=== PATIENT | male | born 1975 | race Caucasian/White ===

== ENCOUNTER 2024-04-13 10:03 | Emergency (ER) | payer SELFPAY ==
[2024-04-13 10:07] VITALS: BP 141/74
--- NOTE | 2024-04-13 11:24 | ED.SKININJ ---
HPI-Injury
General
Chief Complaint: Skin Surface Trauma
Source: patient
Exam Limitations: none
Time Seen by Provider: 04/13/24 10:52
History of Present Illness-Injury
Initial Injury comments:
49 year old male presents with laceration to scalp. He states he dropped a sheet metal fan motor on his head. No loss conscious. No headache. No neck pain. He is not anticoagulated. Last tetanus unknown. No other complaints at this time
Phy Exam
Physical Exam
Physical Exam:
General: Well-appearing male no acute respiratory distress
HEENT normocephalic 4 cm laceration superior scalp oriented in the [id number] direction. Pupils equal round reactive to light
Musculoskeletal exam: Spine is nontender
Neurologic: Alert and oriented normal gait conversing appropriately
Course
Vital Signs
Initial and Last Documented VS:
Initial Vital Signs
Temp Pulse Resp BP Pulse Ox
98.8 F 58 20 141/74 98
04/13/24 10:07 04/13/24 10:07 04/13/24 10:07 04/13/24 10:07 04/13/24 10:07
Last Documented Vital Signs
Temp Pulse Resp BP Pulse Ox
98.8 F 58 20 141/74 98
04/13/24 10:07 04/13/24 10:07 04/13/24 10:07 04/13/24 10:07 04/13/24 10:07
MDM/Problems Addressed
Differential Diagnosis Includes:
Laceration superior scalp. No significant head trauma otherwise. Considered CT but not indicated at this time. The wound was cleansed with saline solution anesthetized 1% lidocaine with epinephrine and closed in a running fashion using 4-0
Prolene sutures. Tetanus vaccine updated. Wound care instructions were given stable for discharge
*Critical Care Note
Total Time (30-74mins, 75-104mins- exclusive of procedures): Not Applicable
ED Attending Note
-
Portions of this chart may have been created with voice recognition software.� Occasional wrong word or��sound alike� substitutions may have occurred due to the inherent limitations of voice recognition software.
Discharge Plan
Departure
Patient Disposition: Home (Routine Discharge)
Date of Disposition: 04/13/24
Time of Disposition: 11:32
Patient with high blood pressure during this ER visit?: No
Discharge Problem:
Laceration
Instructions: Laceration Repair With Stitches (DC)
Activity Restrictions/Additional Instructions:
Keep clean. Have sutures removed in 1 week. Return if worse otherwise
Interventions
Interventions:
*Risk Screen - Suicide Last Done: 04/13/24 10:07
*General Assessment Last Done: 04/13/24 10:07
*Neglect/Abuse Screening Last Done: 04/13/24 10:07
ED-Skin Assessment Last Done: 04/13/24 11:02
Discharge Date and Time
Print Language: BENGALI
[2024-04-13] MEDS: ADACEL 0.5 ML IM (11:38)
== END 2024-04-13 11:54 | disposition home or self-care (01) ==
LOC: EMR 10:03
PROVIDERS: EMERGENCY PHYSICIAN Emergency Medicine; FAMILY PHYSICIAN Urology
DX: S01.01XA Laceration without foreign body of scalp, initial encounter (principal); W20.8XXA Other cause of strike by thrown, projected or falling object, initial encounter; W31.89XA Contact with other specified machinery, initial encounter; Z23 Encounter for immunization
CPT/HCPCS: 99282; 90471; 12002; 90715